=== PATIENT | male | born 1945 | race Caucasian/White ===

== ENCOUNTER 2017-11-10 04:54 | Emergency (ER) | payer OTHER ==
[~2017-11-10] VITALS: Ht 175.3 cm; Wt 81.2 kg
[2017-11-10] MEDS ORDERED: ALTACE1.25 MG (05:04)
[2017-11-10] MEDS ORDERED: FORTAMET1000 MG (05:04)
== END 2017-11-10 15:16 | disposition home or self-care (01) ==
LOC: ER 04:54
DX: G89.11 Acute pain due to trauma (principal); M79.661 Pain in right lower leg; M25.551 Pain in right hip; M54.31 Sciatica, right side; I87.8 Other specified disorders of veins

== ENCOUNTER 2022-09-03 16:55 | Emergency (ER) | payer OTHER ==
[~2022-09-03] VITALS: Ht 172.7 cm; Wt 85.7 kg
[~2022-09-03 16:55] MED LIST: ALTACE1.25 MG; FORTAMET1000 MG
[2022-09-03] MEDS ORDERED: ZESTRIL10 M1 PO (18:16)
[2022-09-03] MEDS ORDERED: NORVASC5 MG PO (18:16)
[2022-09-03] MEDS ORDERED: CRESTOR10 MG PO (18:17)
[2022-09-03] MEDS ORDERED: JARDIANCE10 MG PO (18:17)
[2022-09-03] MEDS ORDERED: XARELTO20 MG (18:17)
== END 2022-09-03 21:15 | disposition home or self-care (01) ==
LOC: ER 16:55
DX: S89.91XA Unspecified injury of right lower leg, initial encounter (principal); W19.XXXA Unspecified fall, initial encounter; Y93.9 Activity, unspecified; Y92.9 Unspecified place or not applicable